=== PATIENT | male | born 1960 | race Caucasian/White ===

== ENCOUNTER 2025-06-03 06:50 | Emergency (ER) | payer BC ==
[~2025-06-03] VITALS: Ht 185.4 cm; Wt 86.0 kg
[2025-06-03 07:06] VITALS: TEMP 97.6
--- NOTE | 2025-06-03 07:12 | Physician Documentation ---
History of Present Illness ~ Chief Complaint: Groin Pain Stated Complaint: GROIN PAIN Time Seen by MD: 07:12 HPI 64-year-old male presenting with right testicle pain He tells me that he felt normal when he went to bed last night. He woke up from sleep this morning with severe pain in his right testicle. He states that the pain does radiate up into the right lower abdomen, but is primarily in the t esticle. He reports a history of 1 episode in the past of similar testicle pain, but he did not seek medical help and it resolved on its own. No fevers, vomiting, urinary symptoms, or other associated symptoms. Medication Reconciliation Allergies: Coded Allergies: No Known Allergies (Unverified , 06/03/25) Scheduled PRN ONDANSETRON ODT 4mg tablet (Ondansetron Odt), 1 TAB PO Q6H PRN PRN for nausea/vomiting Oxycodone Hcl/Acetaminophen 5/325 MG* (Percocet 5/325 MG*), 1 TAB PO TID PRN PRN for pain Review of Systems Constitutional: Denies: fever Gastrointestinal: Reports: abdominal pain; Denies: vomiting Male Genitalia: Reports: testicular pain Physical Exam Vital Signs: Temperature: 97.6, Source: Temporal, Heart Rate: 72, Respiratory Rate: 15, BP: 196/90, Pulse Oximetry: 100, Weight: 86.000 Physical Exam General: This is an uncomfortable and anxious appearing middle-aged man Heart: Regular rate and rhythm, normal-appearing peripheral perfusion Lungs: normal work of breathing, normal oxygen saturation on room air Abdomen: Soft, nondistended, tender to palpation in the right lower quadrant and pelvic region only, no rebound or guarding : The patient declined a terminal press operator for this exam. He has a normal appearing external penis, no lesions. He has focal tenderness on palpation of the right testicle, without obvious swelling, no overlying skin changes. No mass or palpable hernia in the groin Neuro: Alert and oriented Psychiatric: Anxious and appears uncomfortable but is cooperative Progress Results/Orders Results/Orders Orders - GIULIA LIZARRAGA MD Us Testic/W/Duplex (06/03/25 07:18) Ct Abdomen Pelvis (06/03/25 08:54) Cult Urine + [place] [address] (06/03/25 10:42) Completed Orders - GIULIA LIZARRAGA MD Fentanyl/Pf (Fentanyl 0.05 Mg/Ml Syringe (06/03/25 07:20) Ondansetron Inj. (Zofran 4mg/2ml Vial) (06/03/25 07:20) Normal Saline 1000ml (0.9% Sodium Chlori (06/03/25 07:20) Us Testic/W/Duplex (06/03/25 07:18) Ketorolac Trometh 15mg/Ml Vial (Toradol (06/03/25 08:35) Ct Abdomen Pelvis (06/03/25 08:54) Ua W/Microscopic, Cult If Ind (06/03/25 10:30) Medications Received in ER Medications (Trade) Dose Ordered Sig/Sen Route PRN Reason Start Time Stop Time Status Last Admin Dose Admin (fentaNYL 0.05 MG/ML syringe) 50 mcg ONCE ONCE IV 06/03/25 07:20 06/03/25 07:21 DC 06/03/25 07:58 50 MCG (Zofran 4mg/2ml vial) 4 mg ONCE ONCE IV 06/03/25 07:20 06/03/25 07:21 DC 06/03/25 07:58 4 MG Sodium Chloride 1,000 ml @ 1,000 mls/hr ONCE ONCE IV 06/03/25 07:20 06/03/25 08:19 DC 06/03/25 08:03 1,000 MLS/HR (Toradol injection) 15 mg ONCE ONCE IV 06/03/25 08:35 06/03/25 08:36 DC 06/03/25 09:02 15 MG Vital Signs 06/03/25 06/03/25 06/03/25 06/03/25 07:06 07:23 07:24 08:14 Temp 97.6 Pulse 72 70 64 Resp 15 23 23 20 B/P (MAP) 196/90 199/106 (137) 194/99 (130) Pulse Ox 100 100 100 O2 Flow Rate 0 06/03/25 06/03/25 06/03/25 06/03/25 08:46 09:15 09:53 11:03 Pulse 53 77 Resp 20 16 13 B/P (MAP) 177/93 (121) 154/79 (104) Pulse Ox 98 97 O2 Flow Rate 0 Laboratory Tests Test 11/22/25 10:30 Urine Specimen Description Non-specified Urine Color Yellow Urine Clarity Clear Urine pH 6.0 Urine Specific [place] >=1.030 Urine Protein Trace Urine Glucose (UA) Negative Urine Ketones Trace H Urine Occult Blood Trace-intact Urine Nitrite Negative Urine Bilirubin Small Urine Urobilinogen 0.2 Urine Leukocyte Esterase Small H Urine RBC 0-2 Urine WBC 50-100 H Urine Squamous Epithelial Cells Few Urine Bacteria Few Urine Mucus Moderate Urine Culture Indicated Indicated Volume Urine Centrifuged 10 ml Urine Comment EKG/XRAY/CT/US/VASC/MRI CT : Impression I personally interpreted the CT scan, and this shows right-sided distal ureteral stone Ultrasound : Impression Ultrasound of the testicle shows no evidence of torsion or inflammatory process Medical Decision Making Additional information obtaine: N/A Findings na Urinary Diff Dx:Considerations: Include: Epididymitis Genital Diff Dx:Considerations: Include: Hydrocele, Inguinal hernia, Testicular torsion Additional Comment The patient presents with sudden onset of right testicle pain. On exam he does have focal tenderness on palpation in this region and in the right lower quadrant. His exam is concerning for possible torsion versus epididymitis/ orchitis. An IV was placed and he was given pain and nausea medicine. An emergent ultrasound was ordered. This shows no evidence of torsion or epididymitis. We then proceeded with a CT scan, which does show a kidney stone in the right lower ureter. This seems consistent with his pain. After symptomatic treatment his pain was well controlled. Urinalysis without signs of infection. Given that his symptoms are controlled, it seems safe for discharge home with pain and nausea medications. Return precautions given. Departure Time of Disposition: 11:01 Disposition: HOME / SELF CARE / HOMELESS Impression: Primary Impression: Pain in right testicle Additional Impression: Kidney stone Condition: Improved Discharge Instructions: Kidney Stones Referrals: NO PRIMARY CARE PROVIDER (PCP) Prescriptions Oxycodone Hcl/Acetaminophen 5/325 MG* (Percocet 5/325 MG*) 5 Mg/325 Mg Tablet 1 TAB PO TID PRN PRN for pain for 3 Days, #9 TAB Prov: GIULIA LIZARRAGA MD 06/03/25 ONDANSETRON ODT 4mg tablet (ONDANSETRON ODT) 4 Mg Tab.rapdis 1 TAB PO Q6H PRN PRN for nausea/vomiting for 4 Days, #16 TAB 0 Refills Prov: GIULIA LIZARRAGA MD 06/03/25 Education Educated: Patient Educated regarding: treatment, need for follow up Signature Scribe Signature: na Attestation: GIULIA Michael MD Jun 03, 2025 07:12
[2025-06-03] MEDS: fentaNYL/PF 50MCG/1 ML 2ML syringe IV ONE (07:58)
[2025-06-03] MEDS: ondansetron/PF 4mg/2ml inj IV ONE (07:58)
[2025-06-03] MEDS: normal saline 1000ml 1,000 ML IV ONE (08:03)
--- NOTE | 2025-06-03 08:34 | RADIOLOGY REPORT ---
EXAM: US US TESTIC/W/DUPLEX HISTORY: Right testicle pain, acute onset COMPARISON: None TECHNIQUE: Grayscale and color Doppler imaging of the scrotum with spectral analysis performed. FINDINGS: RIGHT TESTICLE: Normal in size and echotexture, measuring 3.7 x 3.2 by 3.2 cm in long axis. Doppler interrogation is unremarkable. RIGHT EPIDIDYMIS: Unremarkable. LEFT TESTICLE: Normal in size and echotexture, measuring 2.8 x 3.2 x 3 cm in long axis. Doppler interrogation is unremarkable. LEFT EPIDIDYMIS: Unremarkable. OTHER: Small right hydrocele. IMPRESSION: 1. No acute process identified. Specifically, no definite sonographic evidence of testicular torsion or epididymoorchitis. Incidental note made of the small right hydrocele.
[2025-06-03] MEDS: ketorolac trometh 15mg/ml vial 15 MG/ML ML IV ONE (09:02)
--- NOTE | 2025-06-03 09:41 | RADIOLOGY REPORT ---
CT abdomen and pelvis without contrast INDICATION: right groin pain TECHNIQUE: Serial axial images were performed through the abdomen and pelvis and then reformatted in the sagittal and coronal plane. All CT scans at this medical facility are performed using dose modulation techniques as appropriate to a performed exam including the following: Automated exposure control was utilized; adjustment of the MA and/or KvP according to patient size; and use of iterative reconstruction technique. FINDINGS: Liver and spleen are normal in size without focal mass. Slight swelling of the right kidney. There is edema in the perinephric fat. There is a mild hydronephrosis of the right kidney with dilatation of the right ureter down to the pelvis. There is a 2 mm stone just proximal to the ureterovesical junction. No masses or enlargement of the adrenal glands or p ancreas. No biliary dilatation. No gallstones. No distention of bowel loops to suggest mechanical obstruction of bowel. There is sigmoid diverticulosis without diverticulitis. The appendix is normal in appearance. No free fluid. Within the pelvis, bladder is smooth walled without stones. There is slight swelling of the fat in the right inguinal ring. A right inguinal hernia is present containing fat IMPRESSION: 1. Slight swelling of the right kidney and right perinephric fat with mild right hydronephrosis. There is a 2 mm stone in the distal right ureter just proximal to the ureterovesical junction 2. Slight swelling of the fat in the right inguinal ring. There is a right inguinal hernia containing fat. Computed Tomographic Radiation Dosimetry Report: Total CTDI vol = 32 mGy Total DLP = 1887 mGy-cm Low dose protocols were performed.
[2025-06-03 10:34] LABS: LEUKOCYTE ESTERASE ,URINE SMALL (Neg); NITRITES, URINE NEGATIVE (Neg); OCCULT BLOOD,URINE TRACE-INTACT (Neg)
[2025-06-03 10:38] LABS: UA COLLECTION TYPE NON-SPECIFIED
[2025-06-03 10:41] LABS: MUCUS STRANDS MODERATE /LPF (Neg)
[2025-06-03 10:42] LABS: SQUAMOUS EPITHELIAL CELL,UR FEW /LPF (FEW)
[2025-06-03] MEDS ORDERED: ONDA-243 PO (11:14)
[2025-06-03] MEDS ORDERED: PER5325T PO (11:23)
[2025-06-03 11:41] VITALS: BP 146/69; PULSE 75; RESP 16; O2SAT 98
== END 2025-06-03 11:43 | disposition home or self-care (01) ==
LOC: ER 06:51
DX: N20.0 Calculus of kidney (principal)
CPT/HCPCS: 74176; 76870; 81001; 87088; 93976; 96361; 96374; 96375; 99285; J1885; J2405; J3010; J7030